=== PATIENT | female | born 1955 | race Caucasian/White ===

== ENCOUNTER 2024-03-02 22:44 | Outpatient (REF) | payer MEDICARE, SELFPAY | END 2024-03-02 22:45 | disposition home or self-care (01) | LOC: LAB 22:44 | PROVIDERS: PCP Nurse Practitioner; Visit Provider Nurse Practitioner | DX: Z01.419 Encounter for gynecological examination (general) (routine) without abnormal findings (principal) | CPT/HCPCS: G0145 ==